=== PATIENT | female | born 1980 | race Caucasian/White ===

== ENCOUNTER 2019-03-23 10:51 | Outpatient (CLI) | payer SELFPAY ==
[~2019-03-23] VITALS: Ht 172.7 cm; Wt 60.9 kg
[2019-03-23 11:33] VITALS: BP 99/55
== END 2019-03-23 14:00 | disposition home or self-care (01) ==
LOC: LDOP 10:51
PROVIDERS: ATTEND Obstetrics & Gynecology
DX: O36.5930 Maternal care for other known or suspected poor fetal growth, third trimester, not applicable or unspecified (principal); Z3A.34 34 weeks gestation of pregnancy
CPT/HCPCS: 59025; 76815; 99211; G0463